=== PATIENT | female | born 1935 | race Caucasian/White ===

== ENCOUNTER 2021-01-06 17:22 | Emergency (ER) | payer MEDICARE, OTHER ==
[~2021-01-06] VITALS: Ht 149.9 cm; Wt 52.2 kg
[2021-01-06 17:25] VITALS: BP 168/88
--- NOTE | 2021-01-06 18:12 | PHYS DOC ---
General Adult EDM: Chief Complaint: MECHANICAL FALL HPI: HPI: Patient is an 85-year-old female being seen in the ER today following a fall. Patient reports that she tripped over her feet approximately 2 hours ago and fell in her driveway. She denies hitting her head or any loss of consciousness, no blood thinners. She is reporting pain to her left elbow and right hip and pelvis. Patient rates her pain 9 out of 10, it is worse with movement, no radiation of pain, no treatment prior to arrival. Patient reports she was able to bear weight but it feels like her right leg is going to give out on her. Patient denies dizziness, chest pain, shortness of breath, vision changes, nausea vomiting, loss of bowel or bladder, saddle anesthesia. (PANKAJ BLANCO APRN) Review of Systems: Review of Systems: 14 body systems of the review of systems have been reviewed. See HPI for pertinent positive and negative responses, otherwise all other systems are negative, nonpertinent or noncontributory (PANKAJ BLANCO APRN) Current Medications: Current Meds: Current Medications Medications (Trade) Dose Ordered Sig/Lori Start Time Stop Time Status Last Admin Dose Admin Acetaminophen/ Hydrocodone Bitart (Lortab 5/325) 1 tab 1X ONCE 01/06/21 18:15 01/06/21 18:16 UNV (PANKAJ BLANCO APRN) Allergies: Allergies: Allergies Coded Allergies Type Severity Reaction Last Updated Verified Sulfa (Sulfonamide Antibiotics) Allergy Unknown 01/06/21 Yes amoxicillin Allergy Unknown 01/06/21 Yes clavulanic acid Allergy Unknown 01/06/21 Yes (PANKAJ BLANCO APRN) Physical Exam: PE: Constitutional: Well developed, well nourished, no acute distress, non-toxic appearance. [] HENT: Normocephalic, atraumatic Eyes: PERRL, conjunctiva normal, no discharge. [] Neck: Normal range of motion, no tenderness, supple, no stridor. [] Cardiovascular:Heart rate regular rhythm, no murmur [] Lungs & Thorax: Bilateral breath sounds clear to auscultation [] Abdomen: Bowel sounds normal, soft, no tenderness, no masses, no pulsatile masses. [] Skin: Warm, dry, no erythema, no rash. [] Back: Right-sided sacral/HIP/PELVIC tenderness, no bony spinal tenderness with palpation, no tenderness with palpation of hips bilaterally, no shortening or rotation or other obvious deformity, FULL ROM OF R. KNEE, NEURO INTACT Extremities: No tenderness, no cyanosis, no clubbing, ROM intact, no edema. Left elbow: Pain with palpation of left elbow, no swelling, no wounds, no ecchymosis neurologically intact, range of motion intactpatient refused x-ray of left elbow [] Neurologic: Alert and oriented X 3, normal motor function, normal sensory function, no focal deficits noted. [] Psychologic: Affect normal, judgement normal, mood normal. [] (PANKAJ BLANCO APRN) EKG: EKG: [] (PANKAJ BLANCO APRN) Radiology/Procedures: Radiology/Procedures: PROCEDURE: HIP RIGHT 2V WITH PELVIS EXAM: AP pelvis, AP and lateral views right hip DATE: 01/06/2021 6:06 PM INDICATION: Reason: fall / Spl. Instructions: / History: . COMPARISON: No Prior FINDINGS: Acute fractures of the right superior and inferior pubic rami. 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 Degenerative changes lower lumbar spine. Large volume stool content. IMPRESSION: 1. Acute fractures of the right superior and inferior pubic rami, can be confirmed by CT. Electronically signed by: Manuel English MD (01/06/2021 7:24 PM) [facility], [facility] DICTATED AND SIGNED BY: MANUEL ENGLISH MD DATE: 01/06/211922 CC: EMERGENCY,DEPARTMENT; JOSE ALBERTO JONES MD; PANKAJ BLANCO APRN ~MTH0 0 (PANKAJ BLANCO APRN) Heart Score: C/O Chest Pain: No Risk Factors: Risk Factors: DM, Current or recent (<one month) smoker, HTN, HLP, family history of CAD, obesity. Risk Scores: Score 0 - 3: 2.5% MACE over next 6 weeks - Discharge Home Score 4 - 6: 20.3% MACE over next 6 weeks - Admit for Clinical Observation Score 7 - 10: 72.7% MACE over next 6 weeks - Early Invasive Strategies (PANKAJ BLANCO APRN) Course & Med Decision Making: Course & Med Decision Making Pertinent Labs and Imaging studies reviewed. (See chart for details) Patient was seen in the ER today for right hip/pelvic pain following a fall. An x-ray was performed in the ER today that showed acute fracture on the right. Patient was also given pain medication in the ER. I spoke with Dr. Garcia at [facility] who agreed to accept patient under his service. Spoke with Dr. Conway with orthopedic group at [facility] he is aware of patient being transferred and I will see her at [facility]. I have discussed with the patient all findings and diagnostic testing, clinical impression and plan. Patient voiced understanding and agreement. No further questions at this time. Patient to be admitted to [facility]. Care transferred at this time 1958. (PANKAJ BLANCO APRN) Dragon Disclaimer: Dragon Disclaimer: This electronic medical record was generated, in whole or in part, using a voice recognition dictation system. (PANKAJ BLANCO APRN) Departure Departure: Impression: Primary Impression: Pubic bone fracture Qualified Codes: S32.591A - Other specified fracture of right pubis, initial encounter for closed fracture Disposition: 02 SHORT TERM HOSPITAL Condition: STABLE Attending Signature Attending Signature I have participated in the care of this patient and I have reviewed and agree with all pertinent clinical information above including history, exam, and recommendations. (MELI REID MD) PANKAJ BLANCO APRN Jan 06, 2021 18:12 MELI REID MD Jan 07, 2021 18:40
[2021-01-06] MEDS ORDERED: HYDROcodone/APAP 5/325MG 1 TAB TABLET PO ONE (18:15)
--- NOTE | 2021-01-06 19:27 | RAD ---
EXAM: AP pelvis, AP and lateral views right hip DATE: 01/06/2021 6:06 PM INDICATION: Reason: fall / Spl. Instructions: / History: . COMPARISON: No Prior FINDINGS: Acute fractures of the right superior and inferior pubic rami. Sclerotic focus left proximal shaft li mak calcified enchondroma. Degenerative changes lower lumbar spine. Large volume stool content. IMPRESSION: 1. Acute fractures of the right superior and inferior pubic rami, can be confirmed by CT. Electronically signed by: Manuel Chua MD (01/06/2021 7:24 PM) DENY
[2021-01-06] MEDS ORDERED: IV NORMAL SALINE 1,000ML 1,000 ML IV SCH (20:00)
[2021-01-06] MEDS ORDERED: ONDANSETRON PF 4 MG/2 ML VIAL. IVP PRN (20:00)
[2021-01-06 20:37] LABS: BASO # 0.1 x10^3/uL (0.0-0.2); BASO % 1 % (0-3); EOS % 0 % (0-3); HEMATOCRIT 38.6 % (36.0-47.0); HEMOGLOBIN 13.1 g/dL (12.0-15.5); LYMPH # 1.3 x10^3/uL (1.0-4.8); LYMPH % 9 % (24-48); MEAN CORPUSCULAR HEMOGLOBIN 31 pg (25-35); MEAN CORPUSCULAR HGB CONC 34 g/dL (31-37); MEAN CORPUSCULAR VOLUME 91 fL (79-100); MONO # 1.5 x10^3/uL (0.0-1.1); MONO % 10 % (0-9); NEUT # 11.4 x10^3uL (1.8-7.7); NEUT % 80 % (31-73); PLATELET COUNT 317 x10^3/uL (140-400); RED BLOOD COUNT 4.23 x10^6/uL (3.50-5.40); RED CELL DISTRIBUTION WIDTH 13.8 % (11.5-14.5); WHITE BLOOD COUNT 14.3 x10^3/uL (4.0-11.0)
[2021-01-06 20:44] LABS: CALCIUM 8.9 mg/dL (8.5-10.1); CREATININE 0.7 mg/dL (0.6-1.0); GFR 79.9; POTASSIUM 4.3 mmol/L (3.5-5.1)
[2021-01-06 20:50] LABS: ALBUMIN 4.1 g/dL (3.4-5.0); ALBUMIN/GLOBULIN RATIO 1.3 (1.0-1.7); TOTAL BILIRUBIN 0.7 mg/dL (0.2-1.0); TOTAL PROTEIN 7.3 g/dL (6.4-8.2)
== END 2021-01-06 22:32 | disposition short-term general hospital (02) ==
LOC: ER 17:22
DX: S32.591A Other specified fracture of right pubis, initial encounter for closed fracture (principal); Z88.2 Allergy status to sulfonamides; Z88.1 Allergy status to other antibiotic agents; W18.09XA Striking against other object with subsequent fall, initial encounter; Y93.89 Activity, other specified; Y92.89 Other specified places as the place of occurrence of the external cause; Y99.8 Other external cause status
CPT/HCPCS: 36415; 73502; 80053; 85025; 96361; 96374; 99285; J3010; J7030

== ENCOUNTER → 2021-03-09 | Outpatient (CLI) | payer MEDICARE, OTHER ==
--- NOTE | 2021-03-09 19:21 | RAD ---
EXAM: XR BILATERAL HIP (WITH OR WITHOUT PELVIS) LEFT 2 VIEWS, XR LUMBAR SPINE 4+V 03/09/2021 1:15 PM CLINICAL INDICATION: Low back and hip pain, pelvic fracture and acute left hip pain COMPARISON: None TECHNIQUE: 5 views of lumbar spine, 3 views of the pelvis and left hip. FINDINGS: Lumbar spine: There are 5 nonrib-bearing lumbar vertebral bodies. There is an inferior endplate compr ession fracture of L1 with mild posterior bulging of the posterior cortex. This results in approximat effie 50 percent vertebral body height loss. There is moderate levoscoliosis centered at L2. Mild multi level disc space narrowing, greatest at L4-L5 and L5-S1. There is multilevel facet arthrosis. Left hip: No acute fracture. Healing right superior and inferior pubic rami fractures are noted. The hip joint spaces are maintained. An enchondroma is seen in the left proximal femur. Sacroiliac joints are unremarkable. IMPRESSION: 1. L1 compression fracture with moderate height loss and posterior bulging of the posterior cortex. T his is age-indeterminate. CT or MRI could be obtained if further evaluation is needed. 2. Moderate levoscoliosis of the lumbar spine and mild degenerative disc disease. 3. Healing right superior and inferior pubic rami fractures. 4. No acute osseous abnormality of the left hip. Electronically signed by: Mandie Richardson MD (03/09/2021 7:18 PM) [id number]
== END ==
LOC: RAD 13:17
PROVIDERS: ATTEND Family Medicine
DX: S32.9XXS Fracture of unspecified parts of lumbosacral spine and pelvis, sequela (principal); S32.591D Other specified fracture of right pubis, subsequent encounter for fracture with routine healing; S32.019A Unspecified fracture of first lumbar vertebra, initial encounter for closed fracture; M48.07 Spinal stenosis, lumbosacral region; M51.36 Other intervertebral disc degeneration, lumbar region; M41.86 Other forms of scoliosis, lumbar region; D16.22 Benign neoplasm of long bones of left lower limb; X58.XXXS Exposure to other specified factors, sequela; X58.XXXD Exposure to other specified factors, subsequent encounter; X58.XXXA Exposure to other specified factors, initial encounter; Y93.89 Activity, other specified; Y92.89 Other specified places as the place of occurrence of the external cause; Y99.8 Other external cause status
CPT/HCPCS: 72110; 73502